=== PATIENT | female | born 1970 | race Caucasian/White ===

== ENCOUNTER 2021-02-24 17:14 | Inpatient (IN) | payer MEDICAID ==
[~2021-02-24] VITALS: Ht 170.2 cm; Wt 85.5 kg
[2021-02-24] MEDS ORDERED: ACETAMINOPHEN 650 MG SUPP ONE (17:22)
[2021-02-24] MEDS ORDERED: PROPOFOL 100 ML IV ONE ×2 (17:22→23:53)
[2021-02-24] MEDS ORDERED: DEXTROSE 50%, 50ML SYRINGE ONE (17:23)
[2021-02-24] MEDS ORDERED: ACETAMINOPHEN 650 MG SUPP PR ONE (17:30)
[2021-02-24] MEDS ORDERED: PLEASE ENTER HEIGHT AND WEIGHT MC SCH (17:30)
[2021-02-24] MEDS ORDERED: PROPOFOL 100 ML IV PRN (17:30)
[2021-02-24] MEDS ORDERED: DEXTROSE 50%, 50ML SYRINGE IVPush ONE (17:30)
[2021-02-24] MEDS ORDERED: SODIUM CHLORIDE 0.9% 1,000ML IVBOLUS ONE ×3 (17:30→18:30)
[2021-02-24 17:51] LABS: MEAN CORPUSCULAR HEMOGLOBIN 22.6 pg (27.0-34.8); MEAN PLATELET VOLUME 8.1 fL (7.4-10.4); PLATELET COUNT 355 x10^3/uL (130-400); RED BLOOD COUNT 5.12 x10^6/uL (3.82-5.3); RED CELL DISTRIBUTION WIDTH 19.6 % (9.6-15.2)
[2021-02-24] MEDS ORDERED: PIPERACILLIN/TAZO 3.375 GM in DEXTROSE 5% 50 ML IVPB ONE (18:00)
[2021-02-24] MEDS ORDERED: VANCOMYCIN PER PHARMACY MC PRN ×2 (18:00→20:00)
[2021-02-24 18:01] LABS: ALANINE AMINOTRANSFERASE 481 U/L (12-78); ALBUMIN 3.1 g/dL (3.4-5.0); ANION GAP 19 mmol/L (5-15); CALCIUM 6.7 mg/dL (8.5-10.1); CHLORIDE 117 mmol/L (98-107)
[2021-02-24 18:17] LABS: ALKALINE PHOSPHATASE 112 U/L (45-117); CREATININE 4.67 mg/dL (0.55-1.02); FREE T4 (FREE THYROXINE) 1.15 ng/dL (0.76-1.46)
[2021-02-24 18:18] LABS: INTERNATIONAL NORMALIZED RATIO 1.21 (0.93-1.1); PROTHROMBIN TIME 12.9 Seconds (9.6-11.5)
[2021-02-24] MEDS ORDERED: VANCOMYCIN 2,000 MG in SODIUM CHLORIDE 0.9% 500 ML IV ONE (18:30)
[2021-02-24 18:46] LABS: MD YES
[2021-02-24 18:51] LABS: BAND#(MANUAL) 1.57 x10^3/uL; BANDS%(MANUAL) 9 % (0-7); LYMPH#(MANUAL) 1.39 x10^3/uL (1-3.4); LYMPHS% (MANUAL) 8 % (22-44); MONOS#(MANUAL) 0.87 x10^3/uL (0.3-2.7); MONOS% (MANUAL) 5 % (2-9); SEG#(MANUAL) 13.57 x10^3/uL (1.8-6.8); SEGS% (MANUAL) 78 % (42-75)
[2021-02-24 18:52] LABS: ANISOCYTOSIS 2+; HYPOCHROMIA 1+; MICROCYTOSIS 1+
[2021-02-24 18:53] LABS: OVALOCYTES 1+; POLYCHROMASIA 1+
[2021-02-24 18:54] LABS: <PLATELET ESTIMATE> ADEQUATE; <PLT MORPHOLOGY> NORMAL PLT MORPH
[2021-02-24] MEDS ORDERED: SODIUM BICARB 8.4%, 50ML SYRINGE ONE ×2 (18:54→19:06)
--- NOTE | 2021-02-24 18:55 | NUR ---
LATE ENTRY: THIS IS A 50 YO F BIB [facility] FROM HOME W/ C/O AMS. PER EMS PT HAS BEEN ALTERED FOR A FEW DAYS". EMS STATES THE FAMILY REPORTS PT NOT SI BUT FORGET W/ MEDS. PER EMS PT MAY HAVE HAD A POLYPHARMACY OD W/ HX OF SAME. NO REPORTED FALLS/TRAUMA. PT INTUBATED METER SETTER. PT HAS BEEN INTUBATED X2 FOR SAME. RT HUMERAL HEAD IO METER SETTER. PT RECEIVED 110 TEODORA, 100MCG KETAMINE X2 AND 100ML D10 METER SETTER. PER EMS FSBS WAS 68, 102. UPON ARRIVAL, PT FEBRILE 103.5 RECTAL, TACHYCARDIC 110 AND HYPOGLYCEMIC FSBS 22, OTHER VS WDL. 1 AMP D50, PROPOFOL, NS BOLUS, ZOSYN INTIATED (AFTER BC DRAWX2) PER ORDERS. NG TUBE, WOO INITIATED PER . PT TO CT AND RETURNED W/O INCIDENT. URINE COLLECTED AND WALKED TO LAB.
--- NOTE | 2021-02-24 18:56 | NUR ---
PER EMS PT WAS "ALTERED FOR A FEW DAYS" AND MOSTLY ASLEEP TODAY ACCORDING TO SPOUSE.
[2021-02-24] MEDS ORDERED: SODIUM BICARBONATE 8.4% 100 MEQ in DEXTROSE 5% 1,000 ML IV SCH (19:00)
[2021-02-24] MEDS ORDERED: SODIUM BICARBONATE 1 MEQ/ML, 50ML VIAL IVPush ONE (19:00)
--- NOTE | 2021-02-24 19:04 | NUR ---
PTS SPOUSE DEEPTHI MOCK [phone]. PER [facility] WILL BE COMING TO HOSPITAL IN A FEW HOURS.
[2021-02-24 19:12] LABS: MICROSCOPIC INDICATED
[2021-02-24 19:25] LABS: AMPHETAMINE SCREEN, URINE Positive (Negative); BARBITURATE SCREEN, URINE Negative (Negative); BENZODIAZEPINE SCREEN, URINE Negative (Negative); CANNABINOID SCREEN, URINE Negative (Negative); COCAINE SCREEN, URINE Negative (Negative); METHADONE SCREEN, URINE Negative (Negative); OPIATE SCREEN, URINE Positive (Negative)
--- NOTE | 2021-02-24 19:27 | NUR ---
PINK SEPSIS BOLUS STICKERS APPLIED TO 1ST AND 2ND L NS BOLUS BAGS THAT ARE STILL INFUSING. ARIS RN AWARE OF NEED FOR ADDITIONAL 589ML TO COMPLETE 2589ML BOLUS PER SEPSIS PROTOCOL. PT NOT HYPOTENSIVE AT THIS TIME.
--- NOTE | 2021-02-24 19:28 | NUR ---
REPORT FROM RICARDO LOPEZ ASSUMED CARE OF PT AT THIS TIME
--- NOTE | 2021-02-24 19:28 | NUR ---
LP BY DR JONES WALKED FLUID TO LAB
--- NOTE | 2021-02-24 19:31 | NUR ---
REPORT TO ARIS LOPEZ. PT CONDITION UNCHANGED FROM PREVIOUS ASSESSMENT. AT BEDSIDE FOR LP.
--- NOTE | 2021-02-24 19:56 | NUR ---
PT [place]EE SETTINGS ETT 7.0 23 AT LIP PEEP 5 TV 500 100%FIO2 RATE 22
[2021-02-24] MEDS ORDERED: LACTULOSE 3.3 GM/5 ML ORAL.SOL RC ONE (20:00)
[2021-02-24] MEDS ORDERED: PHARMACY MAY ADJ FOR RENAL FX MC PRN (20:00)
[2021-02-24] MEDS ORDERED: OMEP5POW PO (20:01)
[2021-02-24] MEDS ORDERED: BACL20TA PO (20:09)
[2021-02-24] MEDS ORDERED: DULO40CA2 PO (20:10)
[2021-02-24] MEDS ORDERED: FLUT9.9S16 PO (20:10)
[2021-02-24] MEDS ORDERED: PROM118S6 PO (20:11)
[2021-02-24] MEDS ORDERED: [UNRECOGNIZED DRUG - CODE] PO (20:12)
[2021-02-24] MEDS ORDERED: ESTR0.3T PO (20:12)
[2021-02-24] MEDS ORDERED: OXCA300O5 PO (20:13)
[2021-02-24 20:14] LABS: GLUCOSE, CSF 111 mg/dL (40-80); TOTAL PROTEIN,CSF 47 mg/dL (15-45)
[2021-02-24] MEDS ORDERED: RISP0.253 PO (20:14)
[2021-02-24] MEDS ORDERED: DIPH25TA24 PO (20:15)
[2021-02-24] MEDS ORDERED: GABA250S3 PO (20:15)
[2021-02-24] MEDS ORDERED: HYDR-3241 PO (20:16)
--- NOTE | 2021-02-24 20:23 | NUR ---
PREETI CELL [phone]
--- NOTE | 2021-02-24 20:24 | NUR ---
REPORT TO ADELFO AT THIS TIME
--- NOTE | 2021-02-24 20:50 | NUR ---
PT TO ICU ON MONITORS WITH 2 RN AND RT
[2021-02-24] MEDS ORDERED: THIAMINE 200 MG in SODIUM CHLORIDE 0.9% 50 ML IV ONE (21:03)
[2021-02-24 21:16] LABS: TRIGLYCERIDES 161 mg/dL (50-200)
[2021-02-24] MEDS ORDERED: PHARMACOKINETIC MONITORING MC PRN (21:30)
[2021-02-24] MEDS: PIPERACILLIN/TAZO 2.25 GM in DEXTROSE 5% 50 ML IV SCH (21:40)
[2021-02-24] MEDS: LACTULOSE 20 GM/30 ML UDC PO/NG SCH (21:40)
[2021-02-24] MEDS ORDERED: SODIUM BICARBONATE 8.4% 150 MEQ in DEXTROSE 5% 1,000 ML IV SCH (22:00)
[2021-02-24 22:16] LABS: CREATINE KINASE, TOTAL 34111 U/L (26-192)
[2021-02-24 22:49] LABS: ANION GAP 17 mmol/L (5-15); CHLORIDE 121 mmol/L (98-107); CREATININE 4.32 mg/dL (0.55-1.02); SALICYLATE LEVEL 4.8 mg/dL (2.8-20.0)
[2021-02-24 23:04] LABS: CALCIUM 5.8 mg/dL (8.5-10.1)
[2021-02-24] MEDS ORDERED: CALCIUM GLUCONATE 9.2 MEQ in SODIUM CHLORIDE 0.9% 100 ML IV ONE (23:30)
[2021-02-24] MEDS ORDERED: POTASSIUM CHLORIDE 20 MEQ PACKET PO/NG ONE (23:30)
[2021-02-24] MEDS: HEPARIN 5,000 UNITS/ML, 1ML SQ SCH (23:37)
[2021-02-25] MEDS: PROPOFOL 100 ML IV PRN ×6 (00:10→21:53)
[2021-02-25 03:05] LABS: CHLORIDE,URINE RANDOM 67 mmol/L; POTASSIUM,URINE RANDOM 56 mmol/L; SODIUM,URINE RANDOM 60 mmol/L
[2021-02-25] MEDS: SODIUM BICARBONATE 8.4% 150 MEQ in DEXTROSE 5% 1,000 ML IV SCH ×2 (03:10→17:19)
[2021-02-25] MEDS: DEXTROSE 5% 1,000 ML IV SCH ×3 (03:16→21:00)
[2021-02-25] MEDS: PIPERACILLIN/TAZO 2.25 GM in DEXTROSE 5% 50 ML IV SCH ×3 (04:09→16:27)
[2021-02-25] MEDS: HEPARIN 5,000 UNITS/ML, 1ML SQ SCH ×3 (06:03→22:39)
[2021-02-25 06:14] LABS: BASOPHILS % (AUTO) 0 % (0-1); EOSINOPHILS % (AUTO) 0 % (1-7); LYMPHOCYTES % (AUTO) 7 % (22-44); MD NO; MEAN CORPUSCULAR HEMOGLOBIN 22.7 pg (27.0-34.8); MEAN CORPUSCULAR HGB CONC 31.3 g/dL (32.4-35.8); MEAN PLATELET VOLUME 8.7 fL (7.4-10.4); MONOCYTES % (AUTO) 4 % (2-9); NEUTROPHILS % (AUTO) 88 % (42-75); PLATELET COUNT 208 x10^3/uL (130-400); RED BLOOD COUNT 4.78 x10^6/uL (3.82-5.3)
[2021-02-25 06:23] LABS: ALANINE AMINOTRANSFERASE 489 U/L (12-78); ALBUMIN 2.5 g/dL (3.4-5.0); ANION GAP 13 mmol/L (5-15); CALCIUM 6.5 mg/dL (8.5-10.1); CHLORIDE 113 mmol/L (98-107); CREATININE 4.67 mg/dL (0.55-1.02)
[2021-02-25 06:40] LABS: ALKALINE PHOSPHATASE 93 U/L (45-117); BILIRUBIN,TOTAL 0.7 mg/dL (0.2-1.0); TOTAL PROTEIN 5.7 g/dL (6.4-8.2)
[2021-02-25] MEDS ORDERED: POTASSIUM CHLORIDE 40 MEQ in SODIUM CHLORIDE 0.9% 100 ML IV ONE (07:00)
[2021-02-25 07:08] LABS: CREATINE KINASE, TOTAL 34401 U/L (26-192)
[2021-02-25] MEDS: PANTOPRAZOLE 40 MG IV IVPush SCH (09:35)
[2021-02-25] MEDS: LACTULOSE 20 GM/30 ML UDC PO/NG SCH ×3 (09:35→21:00)
[2021-02-25] MEDS ORDERED: FENTANYL PF 100 MCG/2ML IVPush PRN (22:00)
[2021-02-25] MEDS ORDERED: ACYCLOVIR 900 MG in SODIUM CHLORIDE 0.9% 250 ML IV SCH (22:30)
[2021-02-26] MEDS: PIPERACILLIN/TAZO 2.25 GM in DEXTROSE 5% 50 ML IV SCH ×4 (00:29→18:07)
[2021-02-26] MEDS: PROPOFOL 100 ML IV PRN ×2 (02:39→05:55)
[2021-02-26] MEDS: DEXTROSE 5% 1,000 ML IV SCH ×2 (03:08→10:42)
[2021-02-26] MEDS: SODIUM BICARBONATE 8.4% 150 MEQ in DEXTROSE 5% 1,000 ML IV SCH ×2 (03:08→21:33)
[2021-02-26 04:20] LABS: MEAN CORPUSCULAR HEMOGLOBIN 22.7 pg (27.0-34.8); MEAN CORPUSCULAR HGB CONC 31.7 g/dL (32.4-35.8); MEAN PLATELET VOLUME 7.8 fL (7.4-10.4); PLATELET COUNT 158 x10^3/uL (130-400); RED BLOOD COUNT 4.04 x10^6/uL (3.82-5.3); RED CELL DISTRIBUTION WIDTH 19.2 % (9.6-15.2)
[2021-02-26 04:45] LABS: MD YES
[2021-02-26 04:49] LABS: ANION GAP 12 mmol/L (5-15); CHLORIDE 103 mmol/L (98-107); CREATININE 5.21 mg/dL (0.55-1.02); VANCOMYCIN,RANDOM 28.4 mcg/mL
[2021-02-26 04:50] LABS: BAND#(MANUAL) 3.42 x10^3/uL; BANDS%(MANUAL) 29 % (0-7); EOS#(MANUAL) 0.12 x10^3/uL (0.0-0.4); EOS% (MANUAL) 1 % (1-7); LYMPHS% (MANUAL) 11 % (22-44); MONOS#(MANUAL) 0.35 x10^3/uL (0.3-2.7); MONOS% (MANUAL) 3 % (2-9); SEG#(MANUAL) 6.61 x10^3/uL (1.8-6.8); SEGS% (MANUAL) 56 % (42-75)
[2021-02-26 04:51] LABS: ANISOCYTOSIS 1+; HYPOCHROMIA 1+; MICROCYTOSIS 1+; OVALOCYTES 1+; POLYCHROMASIA 1+
[2021-02-26 04:52] LABS: <PLATELET ESTIMATE> ADEQUATE; TARGET CELLS 1+
[2021-02-26 04:53] LABS: <PLT MORPHOLOGY> NORMAL PLT MORPH
[2021-02-26 05:00] LABS: CREATINE KINASE, TOTAL 17010 U/L (26-192)
[2021-02-26 05:03] LABS: CALCIUM 5.9 mg/dL (8.5-10.1)
[2021-02-26] MEDS ORDERED: MAGNESIUM SULFATE PMX 2GM/50ML 50 ML IV ONE (05:30)
[2021-02-26] MEDS ORDERED: CALCIUM GLUCONATE 9.2 MEQ in SODIUM CHLORIDE 0.9% 100 ML IV ONE (05:30)
[2021-02-26] MEDS: HEPARIN 5,000 UNITS/ML, 1ML SQ SCH ×3 (05:53→23:00)
[2021-02-26] MEDS: LACTULOSE 20 GM/30 ML UDC PO/NG SCH ×3 (08:19→21:09)
[2021-02-26] MEDS: PANTOPRAZOLE 40 MG IV IVPush SCH (08:19)
[2021-02-26] MEDS ORDERED: FUROSEMIDE 40 MG/4 ML IV ONE (11:30)
[2021-02-26] MEDS: POTASSIUM CHLORIDE 20 MEQ PACKET NG SCH ×2 (12:56→18:08)
[2021-02-26] MEDS: ONDANSETRON 2MG/ML, 2ML IVPush PRN (14:15)
[2021-02-27] MEDS: PIPERACILLIN/TAZO 2.25 GM in DEXTROSE 5% 50 ML IV SCH ×4 (00:02→17:40)
[2021-02-27] MEDS: POTASSIUM CHLORIDE 20 MEQ PACKET NG SCH (00:52)
[2021-02-27] MEDS ORDERED: DEXTROSE 5% 1,000 ML IV SCH (03:00)
[2021-02-27 04:25] LABS: MEAN CORPUSCULAR HEMOGLOBIN 22.9 pg (27.0-34.8); MEAN CORPUSCULAR HGB CONC 32.2 g/dL (32.4-35.8); MEAN PLATELET VOLUME 8.4 fL (7.4-10.4); PLATELET COUNT 138 x10^3/uL (130-400); RED CELL DISTRIBUTION WIDTH 19.3 % (9.6-15.2)
[2021-02-27 04:36] LABS: ANION GAP 10 mmol/L (5-15); CALCIUM 6.8 mg/dL (8.5-10.1); CHLORIDE 101 mmol/L (98-107)
[2021-02-27 04:37] LABS: VANCOMYCIN,RANDOM 25.3 mcg/mL
[2021-02-27 06:14] LABS: MD YES
[2021-02-27 06:15] LABS: ANISOCYTOSIS 2+; HYPOCHROMIA 1+; LYMPH#(MANUAL) 0.93 x10^3/uL (1-3.4); LYMPHS% (MANUAL) 6 % (22-44); MICROCYTOSIS 1+; MONOS#(MANUAL) 0.31 x10^3/uL (0.3-2.7); MONOS% (MANUAL) 2 % (2-9); SEG#(MANUAL) 14.26 x10^3/uL (1.8-6.8); SEGS% (MANUAL) 92 % (42-75)
[2021-02-27 06:18] LABS: <PLATELET ESTIMATE> ADEQUATE; <PLT MORPHOLOGY> NORMAL PLT MORPH; OVALOCYTES 1+
[2021-02-27] MEDS: HEPARIN 5,000 UNITS/ML, 1ML SQ SCH ×3 (06:51→21:33)
[2021-02-27] MEDS: PANTOPRAZOLE 40 MG IV IVPush SCH (07:58)
[2021-02-27] MEDS: LACTULOSE 20 GM/30 ML UDC PO/NG SCH ×3 (07:59→21:33)
[2021-02-27] MEDS: SODIUM BICARBONATE 8.4% 150 MEQ in DEXTROSE 5% 1,000 ML IV SCH (23:09)
[2021-02-28] MEDS: PIPERACILLIN/TAZO 2.25 GM in DEXTROSE 5% 50 ML IV SCH ×4 (00:29→17:48)
[2021-02-28] MEDS: HEPARIN 5,000 UNITS/ML, 1ML SQ SCH ×3 (05:42→22:47)
[2021-02-28 05:50] LABS: MEAN CORPUSCULAR HEMOGLOBIN 22.6 pg (27.0-34.8); MEAN CORPUSCULAR HGB CONC 31.7 g/dL (32.4-35.8); MEAN PLATELET VOLUME 8.5 fL (7.4-10.4); PLATELET COUNT 117 x10^3/uL (130-400); RED BLOOD COUNT 4.51 x10^6/uL (3.82-5.3); RED CELL DISTRIBUTION WIDTH 19.5 % (9.6-15.2)
[2021-02-28 05:59] LABS: ALBUMIN 1.9 g/dL (3.4-5.0); ANION GAP 5 mmol/L (5-15); CALCIUM 8.1 mg/dL (8.5-10.1); CHLORIDE 103 mmol/L (98-107)
[2021-02-28 06:29] LABS: ALANINE AMINOTRANSFERASE 471 U/L (12-78); ALKALINE PHOSPHATASE 215 U/L (45-117); BILIRUBIN,TOTAL 0.9 mg/dL (0.2-1.0); CREATINE KINASE, TOTAL 11438 U/L (26-192); TOTAL PROTEIN 5.3 g/dL (6.4-8.2); VANCOMYCIN,RANDOM 18.2 mcg/mL
[2021-02-28 07:12] LABS: MD YES
[2021-02-28 07:51] LABS: EOS% (MANUAL) 2 % (1-7); LYMPH#(MANUAL) 1.48 x10^3/uL (1-3.4); LYMPHS% (MANUAL) 10 % (22-44); SEG#(MANUAL) 13.02 x10^3/uL (1.8-6.8); SEGS% (MANUAL) 88 % (42-75)
[2021-02-28 07:52] LABS: <PLATELET ESTIMATE> DECREASED; <PLT MORPHOLOGY> NORMAL PLT MORPH; ANISOCYTOSIS 2+; HYPOCHROMIA 1+; MICROCYTOSIS 2+; OVALOCYTES 1+
[2021-02-28] MEDS: LACTULOSE 20 GM/30 ML UDC PO/NG SCH ×2 (09:35→20:52)
[2021-02-28] MEDS: PANTOPRAZOLE 40 MG IV IVPush SCH (09:35)
[2021-02-28] MEDS: SODIUM BICARBONATE 8.4% 150 MEQ in DEXTROSE 5% 1,000 ML IV SCH (20:50)
[2021-03-01] MEDS: PIPERACILLIN/TAZO 2.25 GM in DEXTROSE 5% 50 ML IV SCH ×2 (01:10→06:21)
[2021-03-01 04:33] LABS: MEAN CORPUSCULAR HGB CONC 31.8 g/dL (32.4-35.8); MEAN PLATELET VOLUME 8.5 fL (7.4-10.4); PLATELET COUNT 108 x10^3/uL (130-400)
[2021-03-01 04:40] LABS: ANION GAP 6 mmol/L (5-15); CALCIUM 7.6 mg/dL (8.5-10.1); CHLORIDE 102 mmol/L (98-107); CREATININE 4.25 mg/dL (0.55-1.02)
[2021-03-01 05:37] LABS: MD YES
[2021-03-01 05:39] LABS: EOS#(MANUAL) 0.39 x10^3/uL (0.0-0.4); EOS% (MANUAL) 4 % (1-7); LYMPH#(MANUAL) 1.08 x10^3/uL (1-3.4); LYMPHS% (MANUAL) 11 % (22-44); MONOS#(MANUAL) 0.78 x10^3/uL (0.3-2.7); MONOS% (MANUAL) 8 % (2-9); MYELOCYTES% (MANUAL) 1 % (0-0); SEG#(MANUAL) 7.45 x10^3/uL (1.8-6.8); SEGS% (MANUAL) 76 % (42-75)
[2021-03-01 05:40] LABS: ANISOCYTOSIS 1+; MICROCYTOSIS 1+; OVALOCYTES 1+; POLYCHROMASIA 1+
[2021-03-01 05:41] LABS: <PLATELET ESTIMATE> DECREASED; <PLT MORPHOLOGY> NORMAL PLT MORPH; HYPOCHROMIA 1+
[2021-03-01] MEDS: HEPARIN 5,000 UNITS/ML, 1ML SQ SCH ×3 (06:41→21:26)
[2021-03-01] MEDS: LACTULOSE 20 GM/30 ML UDC PO/NG SCH (08:54)
[2021-03-01] MEDS: HYDROcodone/APAP 5/325 TABLET PO PRN ×2 (08:54→18:42)
[2021-03-01] MEDS: ONDANSETRON 2MG/ML, 2ML IVPush PRN (08:54)
[2021-03-01] MEDS: PANTOPRAZOLE 40 MG IV IVPush SCH (08:54)
[2021-03-01] MEDS: CEFTRIAXONE 2 GM in DEXTROSE 5% 50 ML IVPB SCH (09:57)
[2021-03-01 19:05] VITALS: BP 143/95
[2021-03-02 01:14] VITALS: BP 147/88
[2021-03-02 05:19] LABS: MEAN CORPUSCULAR HEMOGLOBIN 22.9 pg (27.0-34.8); MEAN CORPUSCULAR HGB CONC 30.9 g/dL (32.4-35.8); MEAN PLATELET VOLUME 8.7 fL (7.4-10.4); PLATELET COUNT 136 x10^3/uL (130-400); RED BLOOD COUNT 4.68 x10^6/uL (3.82-5.3); RED CELL DISTRIBUTION WIDTH 20.6 % (9.6-15.2)
[2021-03-02 05:29] LABS: CHLORIDE 107 mmol/L (98-107)
[2021-03-02 05:40] LABS: ALANINE AMINOTRANSFERASE 400 U/L (12-78); ALBUMIN 2.1 g/dL (3.4-5.0); ALKALINE PHOSPHATASE 185 U/L (45-117); ANION GAP 6 mmol/L (5-15); BILIRUBIN,TOTAL 0.5 mg/dL (0.2-1.0); CREATININE 4.21 mg/dL (0.55-1.02); TOTAL PROTEIN 6.2 g/dL (6.4-8.2)
[2021-03-02 06:03] LABS: MD YES
[2021-03-02 06:07] LABS: BAND#(MANUAL) 0.45 x10^3/uL; BANDS%(MANUAL) 4 % (0-7); EOS#(MANUAL) 0.11 x10^3/uL (0.0-0.4); EOS% (MANUAL) 1 % (1-7); LYMPH#(MANUAL) 1.01 x10^3/uL (1-3.4); LYMPHS% (MANUAL) 9 % (22-44); METAMYELOCYTES# (MANUAL) 0.11 x10^3/uL (0-0); METAMYELOCYTES% (MANUAL) 1 % (0-1); MONOS#(MANUAL) 1.46 x10^3/uL (0.3-2.7); MONOS% (MANUAL) 13 % (2-9); MYELOCYTES# (MANUAL) 0.22 x10^3/uL (0-0); MYELOCYTES% (MANUAL) 2 % (0-0); REACTIVE LYMPHS # (MANUAL) 0.11 x10^3/uL (0-0); REACTIVE LYMPHS % (MANUAL) 1 % (0-0); SEG#(MANUAL) 7.73 x10^3/uL (1.8-6.8); SEGS% (MANUAL) 69 % (42-75)
[2021-03-02 06:12] LABS: ANISOCYTOSIS 1+; HYPOCHROMIA 1+; MICROCYTOSIS 1+; OVALOCYTES 1+
[2021-03-02 06:13] LABS: <PLATELET ESTIMATE> ADEQUATE; <PLT MORPHOLOGY> NORMAL PLT MORPH; POLYCHROMASIA 1+; TOXIC GRAN 1+
[2021-03-02] MEDS: HEPARIN 5,000 UNITS/ML, 1ML SQ SCH ×2 (06:28→15:38)
[2021-03-02 07:00] VITALS: BP 146/83
[2021-03-02] MEDS: PANTOPRAZOLE 40 MG IV IVPush SCH (08:34)
[2021-03-02] MEDS: LACTULOSE 20 GM/30 ML UDC PO/NG SCH (08:34)
[2021-03-02] MEDS: CEFTRIAXONE 2 GM in DEXTROSE 5% 50 ML IVPB SCH (09:55)
[2021-03-02] MEDS: HYDROcodone/APAP 5/325 TABLET PO PRN ×2 (10:02→17:27)
[2021-03-02 13:35] VITALS: BP 155/92
[2021-03-02 19:07] VITALS: BP 143/87
[2021-03-03] MEDS: HEPARIN 5,000 UNITS/ML, 1ML SQ SCH ×3 (00:59→17:10)
[2021-03-03] MEDS: ONDANSETRON 2MG/ML, 2ML IVPush PRN (00:59)
[2021-03-03] MEDS: HYDROcodone/APAP 5/325 TABLET PO PRN ×2 (01:00→13:57)
[2021-03-03 01:11] VITALS: BP 149/96
[2021-03-03 04:53] LABS: MEAN CORPUSCULAR HEMOGLOBIN 22.8 pg (27.0-34.8); MEAN CORPUSCULAR HGB CONC 30.9 g/dL (32.4-35.8); MEAN PLATELET VOLUME 9.3 fL (7.4-10.4); PLATELET COUNT 155 x10^3/uL (130-400); RED BLOOD COUNT 4.76 x10^6/uL (3.82-5.3); RED CELL DISTRIBUTION WIDTH 20.9 % (9.6-15.2)
[2021-03-03 05:04] LABS: ALANINE AMINOTRANSFERASE 261 U/L (12-78); ALBUMIN 2.1 g/dL (3.4-5.0); ANION GAP 12 mmol/L (5-15); CALCIUM 8.3 mg/dL (8.5-10.1); CHLORIDE 96 mmol/L (98-107); CREATININE 5.91 mg/dL (0.55-1.02)
[2021-03-03 05:06] LABS: ALKALINE PHOSPHATASE 158 U/L (45-117); BILIRUBIN,TOTAL 0.3 mg/dL (0.2-1.0); TOTAL PROTEIN 6.1 g/dL (6.4-8.2)
[2021-03-03 05:41] LABS: MD YES
[2021-03-03 05:45] LABS: BAND#(MANUAL) 0.44 x10^3/uL; BANDS%(MANUAL) 3 % (0-7); EOS#(MANUAL) 0.29 x10^3/uL (0.0-0.4); EOS% (MANUAL) 2 % (1-7); LYMPH#(MANUAL) 2.21 x10^3/uL (1-3.4); LYMPHS% (MANUAL) 15 % (22-44); METAMYELOCYTES# (MANUAL) 0.59 x10^3/uL (0-0); METAMYELOCYTES% (MANUAL) 4 % (0-1); MONOS#(MANUAL) 1.62 x10^3/uL (0.3-2.7); MONOS% (MANUAL) 11 % (2-9); SEG#(MANUAL) 9.56 x10^3/uL (1.8-6.8); SEGS% (MANUAL) 65 % (42-75)
[2021-03-03 05:46] LABS: ANISOCYTOSIS 1+; HYPOCHROMIA 1+; MICROCYTOSIS 1+; OVALOCYTES 1+; POLYCHROMASIA 1+
[2021-03-03 05:47] LABS: <PLATELET ESTIMATE> ADEQUATE; <PLT MORPHOLOGY> NORMAL PLT MORPH; TOXIC GRAN 1+
[2021-03-03 06:50] VITALS: BP 149/87
[2021-03-03] MEDS: ACETAMINOPHEN 325 MG TABLET PO PRN ×2 (08:28→19:35)
[2021-03-03] MEDS: CEFTRIAXONE 2 GM in DEXTROSE 5% 50 ML IVPB SCH (08:29)
[2021-03-03] MEDS: PANTOPRAZOLE 40 MG IV IVPush SCH (08:29)
[2021-03-03] MEDS: LACTULOSE 20 GM/30 ML UDC PO/NG SCH (08:29)
[2021-03-03 13:27] VITALS: BP 135/88
[2021-03-03 18:36] VITALS: BP 144/94
[2021-03-03] MEDS: MELATONIN 5 MG TABLET PO PRN (21:00)
[2021-03-04 00:39] VITALS: BP 143/87
[2021-03-04] MEDS: HYDROcodone/APAP 5/325 TABLET PO PRN ×2 (00:41→17:01)
[2021-03-04] MEDS: HEPARIN 5,000 UNITS/ML, 1ML SQ SCH ×3 (00:41→17:11)
[2021-03-04] MEDS: ACETAMINOPHEN 325 MG TABLET PO PRN ×2 (06:07→20:53)
[2021-03-04] MEDS: PANTOPRAZOLE 40MG TABLET PO SCH (07:37)
[2021-03-04] MEDS: LACTULOSE 20 GM/30 ML UDC PO/NG SCH (07:37)
[2021-03-04] MEDS: CEFTRIAXONE 2 GM in DEXTROSE 5% 50 ML IVPB SCH (08:10)
[2021-03-04 08:23] VITALS: BP 152/88
[2021-03-04] MEDS: ONDANSETRON 2MG/ML, 2ML IVPush PRN (08:35)
[2021-03-04 08:53] LABS: ALBUMIN 2.2 g/dL (3.4-5.0); ANION GAP 13 mmol/L (5-15); CALCIUM 8.4 mg/dL (8.5-10.1); CHLORIDE 93 mmol/L (98-107); CREATININE 5.26 mg/dL (0.55-1.02)
[2021-03-04 08:55] LABS: MEAN CORPUSCULAR HEMOGLOBIN 22.7 pg (27.0-34.8); MEAN CORPUSCULAR HGB CONC 31.1 g/dL (32.4-35.8); MEAN PLATELET VOLUME 9.4 fL (7.4-10.4); PLATELET COUNT 219 x10^3/uL (130-400); RED BLOOD COUNT 4.51 x10^6/uL (3.82-5.3); RED CELL DISTRIBUTION WIDTH 20.7 % (9.6-15.2)
[2021-03-04 09:29] LABS: MD YES
[2021-03-04 09:33] LABS: ANISOCYTOSIS 1+; BAND#(MANUAL) 0.38 x10^3/uL; BANDS%(MANUAL) 2 % (0-7); EOS#(MANUAL) 0.38 x10^3/uL (0.0-0.4); EOS% (MANUAL) 2 % (1-7); LYMPH#(MANUAL) 3.23 x10^3/uL (1-3.4); LYMPHS% (MANUAL) 17 % (22-44); METAMYELOCYTES# (MANUAL) 0.19 x10^3/uL (0-0); METAMYELOCYTES% (MANUAL) 1 % (0-1); MICROCYTOSIS 1+; MONOS#(MANUAL) 1.33 x10^3/uL (0.3-2.7); MONOS% (MANUAL) 7 % (2-9); MYELOCYTES# (MANUAL) 0.19 x10^3/uL (0-0); MYELOCYTES% (MANUAL) 1 % (0-0); SEGS% (MANUAL) 70 % (42-75)
[2021-03-04 09:34] LABS: HYPOCHROMIA 1+; OVALOCYTES 1+; POLYCHROMASIA 1+
[2021-03-04 09:35] LABS: <PLATELET ESTIMATE> ADEQUATE; <PLT MORPHOLOGY> NORMAL PLT MORPH; TOXIC GRAN 1+
[2021-03-04 12:44] VITALS: BP 138/94
[2021-03-04 19:13] VITALS: BP 138/92
[2021-03-04] MEDS: MELATONIN 5 MG TABLET PO PRN (20:53)
[2021-03-05 01:12] VITALS: BP 137/90
[2021-03-05] MEDS: HYDROcodone/APAP 5/325 TABLET PO PRN ×3 (01:44→21:39)
[2021-03-05] MEDS: HEPARIN 5,000 UNITS/ML, 1ML SQ SCH ×3 (01:44→16:56)
[2021-03-05] MEDS: PANTOPRAZOLE 40MG TABLET PO SCH (05:24)
[2021-03-05 05:54] LABS: MEAN CORPUSCULAR HEMOGLOBIN 23.1 pg (27.0-34.8); PLATELET COUNT 258 x10^3/uL (130-400); RED BLOOD COUNT 4.59 x10^6/uL (3.82-5.3); RED CELL DISTRIBUTION WIDTH 21.2 % (9.6-15.2)
[2021-03-05 06:08] LABS: ALBUMIN 2.4 g/dL (3.4-5.0); ANION GAP 18 mmol/L (5-15); CALCIUM 8.2 mg/dL (8.5-10.1); CHLORIDE 90 mmol/L (98-107)
[2021-03-05 06:15] LABS: ALANINE AMINOTRANSFERASE 147 U/L (12-78); ALKALINE PHOSPHATASE 145 U/L (45-117); BILIRUBIN,TOTAL 0.4 mg/dL (0.2-1.0); CREATININE 6.78 mg/dL (0.55-1.02); TOTAL PROTEIN 6.9 g/dL (6.4-8.2)
[2021-03-05 06:19] LABS: MD YES
[2021-03-05 06:21] LABS: ANISOCYTOSIS 1+; BAND#(MANUAL) 0.42 x10^3/uL; BANDS%(MANUAL) 2 % (0-7); HYPOCHROMIA 1+; LYMPH#(MANUAL) 3.36 x10^3/uL (1-3.4); LYMPHS% (MANUAL) 16 % (22-44); METAMYELOCYTES# (MANUAL) 0.21 x10^3/uL (0-0); METAMYELOCYTES% (MANUAL) 1 % (0-1); MICROCYTOSIS 1+; MONOS#(MANUAL) 1.26 x10^3/uL (0.3-2.7); MONOS% (MANUAL) 6 % (2-9); MYELOCYTES# (MANUAL) 0.21 x10^3/uL (0-0); MYELOCYTES% (MANUAL) 1 % (0-0); OVALOCYTES 1+; POLYCHROMASIA 1+; SEG#(MANUAL) 15.54 x10^3/uL (1.8-6.8); SEGS% (MANUAL) 74 % (42-75)
[2021-03-05 06:22] LABS: <PLATELET ESTIMATE> ADEQUATE; <PLT MORPHOLOGY> NORMAL PLT MORPH
[2021-03-05 08:00] VITALS: BP 136/70
[2021-03-05] MEDS: LACTULOSE 20 GM/30 ML UDC PO/NG SCH (08:15)
[2021-03-05 09:48] LABS: CREATINE KINASE, TOTAL 2718 U/L (26-192)
[2021-03-05 10:22] VITALS: BP 145/90
[2021-03-05 11:17] LABS: CLOSTRIDIUM DIFFICILE ANTIGEN NEGATIVE; CLOSTRIDIUM DIFFICILE TOXIN NEGATIVE (Negative)
--- NOTE | 2021-03-05 14:17 | NUR ---
Tube feeding: Nepro: goal: 65 ml/hr from 16:00 to 08:00 Addendum: 03/05/21 at [address] Amended: Links added.
[2021-03-05 14:30] VITALS: BP 150/92
[2021-03-05] MEDS: ALPRazolam 1MG TAB PO PRN (16:54)
[2021-03-05] MEDS ORDERED: CEFAZOLIN 3,000 MG in SODIUM CHLORIDE 0.9% 50 ML IV SCH (17:00)
[2021-03-05 21:34] VITALS: BP 140/93
[2021-03-05] MEDS: MELATONIN 5 MG TABLET PO PRN (21:38)
[2021-03-06] MEDS: HEPARIN 5,000 UNITS/ML, 1ML SQ SCH ×3 (01:30→17:22)
[2021-03-06 05:24] VITALS: BP 123/83
[2021-03-06] MEDS: PANTOPRAZOLE 40MG TABLET PO SCH (05:27)
[2021-03-06] MEDS: HYDROcodone/APAP 5/325 TABLET PO PRN ×3 (05:33→21:12)
[2021-03-06 06:00] LABS: HCT (SEDRATE) 32.3 % (34.6-47.8)
[2021-03-06 06:10] LABS: ALANINE AMINOTRANSFERASE 101 U/L (12-78); ALBUMIN 2.4 g/dL (3.4-5.0); ANION GAP 14 mmol/L (5-15); CALCIUM 8.4 mg/dL (8.5-10.1); CHLORIDE 95 mmol/L (98-107)
[2021-03-06 06:11] LABS: BASOPHILS % (AUTO) 0 % (0-1); EOSINOPHILS % (AUTO) 1 % (1-7); LYMPHOCYTES % (AUTO) 7 % (22-44); MEAN CORPUSCULAR HEMOGLOBIN 23.3 pg (27.0-34.8); MEAN CORPUSCULAR HGB CONC 32.2 g/dL (32.4-35.8); MEAN PLATELET VOLUME 8.8 fL (7.4-10.4); MONOCYTES % (AUTO) 6 % (2-9); NEUTROPHILS % (AUTO) 86 % (42-75); PLATELET COUNT 335 x10^3/uL (130-400); RED BLOOD COUNT 4.52 x10^6/uL (3.82-5.3); RED CELL DISTRIBUTION WIDTH 21.3 % (9.6-15.2)
[2021-03-06 06:20] LABS: ALKALINE PHOSPHATASE 139 U/L (45-117); BILIRUBIN,TOTAL 0.4 mg/dL (0.2-1.0); TOTAL PROTEIN 6.7 g/dL (6.4-8.2)
[2021-03-06 07:03] LABS: MD NO
[2021-03-06] MEDS: LACTULOSE 20 GM/30 ML UDC PO/NG SCH (08:07)
[2021-03-06 08:12] VITALS: BP 110/63
[2021-03-06 12:27] LABS: MICROSCOPIC INDICATED
[2021-03-06 14:47] VITALS: BP 131/83
[2021-03-06 19:40] VITALS: BP 124/75
[2021-03-06] MEDS: ONDANSETRON 2MG/ML, 2ML IVPush PRN (19:49)
[2021-03-07] MEDS: ONDANSETRON 2MG/ML, 2ML IVPush PRN ×2 (00:01→20:55)
[2021-03-07] MEDS: HEPARIN 5,000 UNITS/ML, 1ML SQ SCH ×3 (01:01→16:39)
[2021-03-07] MEDS: MELATONIN 5 MG TABLET PO PRN ×2 (01:01→22:45)
[2021-03-07] MEDS: HYDROcodone/APAP 5/325 TABLET PO PRN ×3 (01:02→20:38)
[2021-03-07 01:49] VITALS: BP 134/83
[2021-03-07 04:45] LABS: BASOPHILS % (AUTO) 0 % (0-1); EOSINOPHILS % (AUTO) 1 % (1-7); LYMPHOCYTES % (AUTO) 10 % (22-44); MEAN CORPUSCULAR HEMOGLOBIN 23.5 pg (27.0-34.8); MEAN CORPUSCULAR HGB CONC 32.2 g/dL (32.4-35.8); MEAN PLATELET VOLUME 8.2 fL (7.4-10.4); MONOCYTES % (AUTO) 7 % (2-9); NEUTROPHILS % (AUTO) 81 % (42-75); PLATELET COUNT 362 x10^3/uL (130-400); RED BLOOD COUNT 4.24 x10^6/uL (3.82-5.3); RED CELL DISTRIBUTION WIDTH 22.4 % (9.6-15.2)
[2021-03-07 04:54] LABS: ALANINE AMINOTRANSFERASE 51 U/L (12-78); ALBUMIN 2.4 g/dL (3.4-5.0); ANION GAP 15 mmol/L (5-15); CALCIUM 8.4 mg/dL (8.5-10.1); CHLORIDE 94 mmol/L (98-107)
[2021-03-07 04:56] LABS: ALKALINE PHOSPHATASE 160 U/L (45-117); BILIRUBIN,TOTAL 0.3 mg/dL (0.2-1.0); TOTAL PROTEIN 6.7 g/dL (6.4-8.2)
[2021-03-07] MEDS: PANTOPRAZOLE 40MG TABLET PO SCH (05:11)
[2021-03-07 05:39] LABS: MD SCAN
[2021-03-07 08:00] VITALS: BP 138/85
[2021-03-07] MEDS: NYSTATIN TOPICAL POWDER 15GM TP SCH ×3 (09:20→20:38)
[2021-03-07] MEDS: SODIUM BICARBONATE 650 MG TABLET PO SCH ×2 (11:45→20:38)
[2021-03-07 13:38] VITALS: BP 146/87
[2021-03-07] MEDS: ACETAMINOPHEN 325 MG TABLET PO PRN (16:38)
[2021-03-07 18:51] VITALS: BP 136/82
[2021-03-07 22:46] VITALS: BP 153/95
[2021-03-08] MEDS: ACETAMINOPHEN 325 MG TABLET PO PRN (00:51)
[2021-03-08] MEDS: HEPARIN 5,000 UNITS/ML, 1ML SQ SCH ×3 (00:51→17:32)
[2021-03-08 01:02] VITALS: BP 138/83
[2021-03-08] MEDS: PANTOPRAZOLE 40MG TABLET PO SCH (04:58)
[2021-03-08 05:54] LABS: BASOPHILS % (AUTO) 0 % (0-1); EOSINOPHILS % (AUTO) 1 % (1-7); LYMPHOCYTES % (AUTO) 9 % (22-44); MEAN CORPUSCULAR HEMOGLOBIN 23.6 pg (27.0-34.8); MEAN CORPUSCULAR HGB CONC 32.1 g/dL (32.4-35.8); MEAN PLATELET VOLUME 8.1 fL (7.4-10.4); MONOCYTES % (AUTO) 7 % (2-9); NEUTROPHILS % (AUTO) 83 % (42-75); PLATELET COUNT 377 x10^3/uL (130-400); RED BLOOD COUNT 4.04 x10^6/uL (3.82-5.3); RED CELL DISTRIBUTION WIDTH 22.2 % (9.6-15.2)
[2021-03-08 05:59] LABS: ANION GAP 18 mmol/L (5-15); CALCIUM 8.8 mg/dL (8.5-10.1); CHLORIDE 94 mmol/L (98-107); CREATININE 6.96 mg/dL (0.55-1.02)
[2021-03-08 06:19] LABS: MD SCAN
[2021-03-08 07:04] VITALS: BP 142/77
[2021-03-08] MEDS: HYDROcodone/APAP 5/325 TABLET PO PRN ×2 (07:55→19:43)
[2021-03-08] MEDS ORDERED: CEFAZOLIN 0 MG in SODIUM CHLORIDE 0.9% 50 ML IV SCH (09:00)
[2021-03-08] MEDS: SODIUM BICARBONATE 650 MG TABLET PO SCH ×2 (09:09→21:05)
[2021-03-08] MEDS: NYSTATIN TOPICAL POWDER 15GM TP SCH ×3 (09:11→21:05)
[2021-03-08] MEDS: ALPRazolam 1MG TAB PO PRN (10:39)
[2021-03-08 12:13] VITALS: BP 147/83
[2021-03-08] MEDS: ONDANSETRON 2MG/ML, 2ML IVPush PRN (15:32)
[2021-03-08] MEDS ORDERED: CEFAZOLIN PMX 2GM/50ML 50 ML IVPB SCH (17:00)
[2021-03-08 19:10] VITALS: BP 137/84
[2021-03-08] MEDS: MELATONIN 5 MG TABLET PO PRN (21:05)
[2021-03-09 01:14] VITALS: BP 122/77
[2021-03-09] MEDS: HEPARIN 5,000 UNITS/ML, 1ML SQ SCH ×3 (01:18→16:34)
[2021-03-09] MEDS: ACETAMINOPHEN 325 MG TABLET PO PRN ×2 (02:54→21:17)
[2021-03-09] MEDS: PANTOPRAZOLE 40MG TABLET PO SCH (03:40)
[2021-03-09 06:05] LABS: BASOPHILS % (AUTO) 1 % (0-1); EOSINOPHILS % (AUTO) 1 % (1-7); LYMPHOCYTES % (AUTO) 9 % (22-44); MEAN CORPUSCULAR HEMOGLOBIN 23.5 pg (27.0-34.8); MEAN CORPUSCULAR HGB CONC 32.2 g/dL (32.4-35.8); MEAN PLATELET VOLUME 7.9 fL (7.4-10.4); MONOCYTES % (AUTO) 8 % (2-9); NEUTROPHILS % (AUTO) 81 % (42-75); PLATELET COUNT 427 x10^3/uL (130-400); RED CELL DISTRIBUTION WIDTH 23.3 % (9.6-15.2)
[2021-03-09 06:14] LABS: ANION GAP 11 mmol/L (5-15); CALCIUM 9.4 mg/dL (8.5-10.1); CHLORIDE 97 mmol/L (98-107)
[2021-03-09 06:15] LABS: CREATININE 5.27 mg/dL (0.55-1.02)
[2021-03-09 06:34] VITALS: BP 119/77
[2021-03-09 06:37] LABS: MD SCAN
[2021-03-09] MEDS: SODIUM BICARBONATE 650 MG TABLET PO SCH ×2 (08:57→21:16)
[2021-03-09] MEDS: HYDROcodone/APAP 5/325 TABLET PO PRN ×2 (09:38→17:53)
[2021-03-09] MEDS: ALPRazolam 1MG TAB PO PRN (09:38)
[2021-03-09] MEDS: NYSTATIN TOPICAL POWDER 15GM TP SCH ×3 (11:00→21:00)
[2021-03-09 12:20] VITALS: BP 122/67
[2021-03-09] MEDS ORDERED: FENTANYL PF 100 MCG/2ML ONE ×2 (12:35)
[2021-03-09] MEDS ORDERED: FLUMAZENIL 0.1 MG/1 ML, 5ML ONE (12:36)
[2021-03-09] MEDS ORDERED: MIDAZOLAM 1 MG/ML, 5ML ONE (12:36)
[2021-03-09] MEDS ORDERED: NALOXONE 1 MG/ML, 2ML ONE (12:36)
[2021-03-09] MEDS ORDERED: LIDOCAINE 1%, 10ML ONE (12:38)
[2021-03-09] MEDS ORDERED: LIDOCAINE 1%, 20ML ONE (12:38)
[2021-03-09 14:24] VITALS: BP 138/82
[2021-03-09 20:23] VITALS: BP 130/84
[2021-03-09] MEDS: MELATONIN 5 MG TABLET PO PRN (21:17)
[2021-03-10 01:19] VITALS: BP 132/84
[2021-03-10] MEDS: HEPARIN 5,000 UNITS/ML, 1ML SQ SCH ×3 (01:21→17:36)
[2021-03-10] MEDS: HYDROcodone/APAP 5/325 TABLET PO PRN ×3 (01:22→20:43)
[2021-03-10] MEDS: ACETAMINOPHEN 325 MG TABLET PO PRN ×2 (05:10→12:35)
[2021-03-10] MEDS: PANTOPRAZOLE 40MG TABLET PO SCH (05:10)
[2021-03-10] MEDS: NYSTATIN TOPICAL POWDER 15GM TP SCH ×3 (09:00→20:44)
[2021-03-10] MEDS: SODIUM BICARBONATE 650 MG TABLET PO SCH ×2 (09:00→20:42)
[2021-03-10 09:12] VITALS: BP 100/65
--- NOTE | 2021-03-10 12:46 | NUR ---
Activity sheet posted and patient/RN informed. Addendum: 03/10/21 at 1247 by Jae Plummer PT Amended: Links added.
[2021-03-10 14:50] VITALS: BP 125/84
[2021-03-10] MEDS ORDERED: CEFAZOLIN PMX 2GM/50ML 50 ML IVPB SCH (17:00)
[2021-03-10] MEDS ORDERED: BUTALB/APAP/CAFFEINE 50MG/325MG/40MG ONE (17:57)
[2021-03-10] MEDS ORDERED: BUTALB/APAP/CAFFEINE 50MG/325MG/40MG PO ONE (18:00)
[2021-03-10 18:28] VITALS: BP 129/88
[2021-03-10] MEDS: MELATONIN 5 MG TABLET PO PRN (21:55)
[2021-03-11 00:33] VITALS: BP 121/82
[2021-03-11] MEDS: HEPARIN 5,000 UNITS/ML, 1ML SQ SCH ×3 (01:12→17:44)
[2021-03-11] MEDS: HYDROcodone/APAP 5/325 TABLET PO PRN ×2 (04:40→17:51)
[2021-03-11 05:45] LABS: MEAN CORPUSCULAR HEMOGLOBIN 24.3 pg (27.0-34.8); MEAN CORPUSCULAR HGB CONC 32.2 g/dL (32.4-35.8); MEAN PLATELET VOLUME 7.4 fL (7.4-10.4); PLATELET COUNT 338 x10^3/uL (130-400); RED BLOOD COUNT 3.84 x10^6/uL (3.82-5.3); RED CELL DISTRIBUTION WIDTH 24.7 % (9.6-15.2)
[2021-03-11] MEDS: PANTOPRAZOLE 40MG TABLET PO SCH (05:45)
[2021-03-11 06:11] LABS: CHLORIDE 94 mmol/L (98-107)
[2021-03-11 06:19] LABS: MD YES
[2021-03-11 06:21] LABS: BASOS% (MANUAL) 1 % (0-1); EOS#(MANUAL) 0.31 x10^3/uL (0.0-0.4); EOS% (MANUAL) 3 % (1-7); LYMPH#(MANUAL) 1.04 x10^3/uL (1-3.4); LYMPHS% (MANUAL) 10 % (22-44); MONOS#(MANUAL) 0.62 x10^3/uL (0.3-2.7); MONOS% (MANUAL) 6 % (2-9); SEG#(MANUAL) 8.32 x10^3/uL (1.8-6.8); SEGS% (MANUAL) 80 % (42-75)
[2021-03-11 06:22] LABS: ANISOCYTOSIS 1+; HYPOCHROMIA 1+; MICROCYTOSIS 1+; POLYCHROMASIA 1+
[2021-03-11 06:23] LABS: <PLATELET ESTIMATE> ADEQUATE; <PLT MORPHOLOGY> NORMAL PLT MORPH
[2021-03-11 06:24] LABS: ALBUMIN 2.3 g/dL (3.4-5.0); ANION GAP 12 mmol/L (5-15); CALCIUM 8.4 mg/dL (8.5-10.1); CREATININE 3.12 mg/dL (0.55-1.02)
[2021-03-11 06:42] VITALS: BP 131/84
[2021-03-11] MEDS: NYSTATIN TOPICAL POWDER 15GM TP SCH ×3 (08:12→20:38)
[2021-03-11] MEDS: SODIUM BICARBONATE 650 MG TABLET PO SCH ×2 (08:12→20:36)
[2021-03-11] MEDS: ACETAMINOPHEN 325 MG TABLET PO PRN ×2 (08:20→20:37)
[2021-03-11] MEDS: ONDANSETRON 2MG/ML, 2ML IVPush PRN ×2 (10:27→21:15)
[2021-03-11] MEDS: ALPRazolam 1MG TAB PO PRN (10:53)
[2021-03-11] MEDS ORDERED: DIPHENHYDRAMINE 25 MG CAPSULE PO ONE (11:00)
[2021-03-11 14:21] VITALS: BP 125/66
[2021-03-11 19:07] VITALS: BP 113/76
[2021-03-11] MEDS: MELATONIN 5 MG TABLET PO PRN (20:38)
[2021-03-12 01:20] VITALS: BP 125/84
[2021-03-12] MEDS: HYDROcodone/APAP 5/325 TABLET PO PRN ×3 (01:30→18:27)
[2021-03-12] MEDS: HEPARIN 5,000 UNITS/ML, 1ML SQ SCH ×3 (01:31→16:40)
[2021-03-12] MEDS: PANTOPRAZOLE 40MG TABLET PO SCH (05:12)
[2021-03-12 05:56] LABS: ANION GAP 5 mmol/L (5-15); CALCIUM 8.6 mg/dL (8.5-10.1); CHLORIDE 97 mmol/L (98-107)
[2021-03-12 07:03] VITALS: BP 130/85
[2021-03-12] MEDS: ONDANSETRON 2MG/ML, 2ML IVPush PRN (08:51)
[2021-03-12] MEDS: SODIUM BICARBONATE 650 MG TABLET PO SCH ×2 (08:51→20:03)
[2021-03-12] MEDS: NYSTATIN TOPICAL POWDER 15GM TP SCH ×3 (09:00→20:04)
[2021-03-12 12:10] VITALS: BP 122/75
[2021-03-12 19:21] VITALS: BP 119/79
[2021-03-12] MEDS: MELATONIN 5 MG TABLET PO PRN (20:03)
[2021-03-12] MEDS: ACETAMINOPHEN 325 MG TABLET PO PRN (20:03)
[2021-03-13] MEDS: HEPARIN 5,000 UNITS/ML, 1ML SQ SCH ×3 (00:05→16:38)
[2021-03-13 01:39] VITALS: BP 89/42
[2021-03-13 03:33] VITALS: BP 105/68
[2021-03-13] MEDS: HYDROcodone/APAP 5/325 TABLET PO PRN ×3 (03:37→20:56)
[2021-03-13] MEDS: PANTOPRAZOLE 40MG TABLET PO SCH (05:12)
[2021-03-13 05:28] LABS: ALBUMIN 2.3 g/dL (3.4-5.0); ANION GAP 7 mmol/L (5-15); CALCIUM 8.3 mg/dL (8.5-10.1); CHLORIDE 98 mmol/L (98-107); CREATININE 1.94 mg/dL (0.55-1.02)
[2021-03-13 07:45] VITALS: BP 113/74
[2021-03-13] MEDS: SODIUM BICARBONATE 650 MG TABLET PO SCH ×2 (08:21→20:55)
[2021-03-13] MEDS: ONDANSETRON 2MG/ML, 2ML IVPush PRN ×2 (08:21→17:24)
[2021-03-13] MEDS: NYSTATIN TOPICAL POWDER 15GM TP SCH ×3 (08:21→21:01)
[2021-03-13] MEDS ORDERED: POTASSIUM CHLORIDE 20 MEQ TAB.ER.PRT PO ONE (10:30)
[2021-03-13 12:25] VITALS: BP 138/87
[2021-03-13 19:13] VITALS: BP 122/88
[2021-03-13] MEDS: MELATONIN 5 MG TABLET PO PRN (20:56)
[2021-03-14 01:15] VITALS: BP 121/76
[2021-03-14] MEDS: PANTOPRAZOLE 40MG TABLET PO SCH (05:19)
[2021-03-14] MEDS: HYDROcodone/APAP 5/325 TABLET PO PRN ×3 (05:19→21:04)
[2021-03-14 07:18] LABS: BASOPHILS % (AUTO) 1 % (0-1); EOSINOPHILS % (AUTO) 2 % (1-7); LYMPHOCYTES % (AUTO) 17 % (22-44); MEAN CORPUSCULAR HEMOGLOBIN 24.3 pg (27.0-34.8); MEAN CORPUSCULAR HGB CONC 32.1 g/dL (32.4-35.8); MEAN PLATELET VOLUME 6.9 fL (7.4-10.4); MONOCYTES % (AUTO) 12 % (2-9); NEUTROPHILS % (AUTO) 67 % (42-75); PLATELET COUNT 342 x10^3/uL (130-400); RED BLOOD COUNT 3.55 x10^6/uL (3.82-5.3)
[2021-03-14 07:29] LABS: CHLORIDE 102 mmol/L (98-107)
[2021-03-14 07:30] LABS: ALBUMIN 2.3 g/dL (3.4-5.0); ANION GAP 6 mmol/L (5-15); CALCIUM 8.6 mg/dL (8.5-10.1)
[2021-03-14 07:34] LABS: MD SCAN
[2021-03-14 07:36] LABS: ALANINE AMINOTRANSFERASE 13 U/L (12-78); ALKALINE PHOSPHATASE 89 U/L (45-117); BILIRUBIN,TOTAL 0.2 mg/dL (0.2-1.0); CREATININE 1.52 mg/dL (0.55-1.02); TOTAL PROTEIN 6.3 g/dL (6.4-8.2)
[2021-03-14 08:23] VITALS: BP 134/80
[2021-03-14] MEDS: HEPARIN 5,000 UNITS/ML, 1ML SQ SCH ×3 (08:48→16:35)
[2021-03-14] MEDS: SODIUM BICARBONATE 650 MG TABLET PO SCH ×2 (08:48→20:54)
[2021-03-14] MEDS: ALPRazolam 1MG TAB PO PRN (08:51)
[2021-03-14] MEDS: NYSTATIN TOPICAL POWDER 15GM TP SCH ×3 (08:54→20:54)
[2021-03-14 12:33] VITALS: BP 114/73
[2021-03-14] MEDS: ACETAMINOPHEN 325 MG TABLET PO PRN ×2 (16:39)
[2021-03-14] MEDS: ONDANSETRON 2MG/ML, 2ML IVPush PRN (17:38)
[2021-03-14 21:06] VITALS: BP 108/72
[2021-03-15] MEDS: HEPARIN 5,000 UNITS/ML, 1ML SQ SCH ×2 (02:15→07:33)
[2021-03-15 02:18] VITALS: BP 119/75
[2021-03-15] MEDS: ACETAMINOPHEN 325 MG TABLET PO PRN ×2 (02:23→08:36)
[2021-03-15] MEDS: PANTOPRAZOLE 40MG TABLET PO SCH (05:30)
[2021-03-15] MEDS: HYDROcodone/APAP 5/325 TABLET PO PRN ×2 (05:31→14:57)
[2021-03-15 05:44] LABS: MEAN CORPUSCULAR HEMOGLOBIN 24.6 pg (27.0-34.8); MEAN CORPUSCULAR HGB CONC 32.3 g/dL (32.4-35.8); MEAN PLATELET VOLUME 7.1 fL (7.4-10.4); PLATELET COUNT 322 x10^3/uL (130-400); RED BLOOD COUNT 3.64 x10^6/uL (3.82-5.3); RED CELL DISTRIBUTION WIDTH 23.8 % (9.6-15.2)
[2021-03-15 05:54] LABS: CHLORIDE 106 mmol/L (98-107)
[2021-03-15 05:57] LABS: ALANINE AMINOTRANSFERASE 20 U/L (12-78); ALBUMIN 2.3 g/dL (3.4-5.0); ALKALINE PHOSPHATASE 94 U/L (45-117); ANION GAP 9 mmol/L (5-15); BILIRUBIN,TOTAL 0.2 mg/dL (0.2-1.0); CALCIUM 8.4 mg/dL (8.5-10.1); CREATININE 1.07 mg/dL (0.55-1.02); TOTAL PROTEIN 6.1 g/dL (6.4-8.2)
[2021-03-15 06:11] LABS: MD YES
[2021-03-15 06:13] LABS: <PLATELET ESTIMATE> ADEQUATE; <PLT MORPHOLOGY> NORMAL PLT MORPH; ANISOCYTOSIS 1+; BAND#(MANUAL) 0.14 x10^3/uL; BANDS%(MANUAL) 2 % (0-7); EOS#(MANUAL) 0.07 x10^3/uL (0.0-0.4); EOS% (MANUAL) 1 % (1-7); HYPOCHROMIA 1+; LYMPH#(MANUAL) 1.66 x10^3/uL (1-3.4); LYMPHS% (MANUAL) 24 % (22-44); MICROCYTOSIS 1+; MONOS#(MANUAL) 0.14 x10^3/uL (0.3-2.7); MONOS% (MANUAL) 2 % (2-9); POLYCHROMASIA 1+; SEGS% (MANUAL) 71 % (42-75)
[2021-03-15] MEDS: SODIUM BICARBONATE 650 MG TABLET PO SCH (08:34)
[2021-03-15 08:47] VITALS: BP 97/64
[2021-03-15] MEDS: NYSTATIN TOPICAL POWDER 15GM TP SCH ×2 (09:00→14:57)
[2021-03-15] MEDS ORDERED: LIDOCAINE 1%, 10ML ONE (09:47)
[2021-03-15] MEDS ORDERED: FLUMAZENIL 0.1 MG/1 ML, 5ML ONE (10:01)
[2021-03-15] MEDS ORDERED: FENTANYL PF 100 MCG/2ML ONE (10:01)
[2021-03-15] MEDS ORDERED: MIDAZOLAM 1 MG/ML, 5ML ONE (10:01)
[2021-03-15] MEDS ORDERED: NALOXONE 1 MG/ML, 2ML ONE (10:01)
[2021-03-15 12:08] VITALS: BP 107/69
== END 2021-03-15 15:59 | disposition home or self-care (01) | DRG 720 ==
LOC: ED 19:04 → EDIP 19:18 → CCU 20:37 → 4NW 03-01 18:19 → 4NE 03-05 07:40 → 4WST 03-07 22:24
PROVIDERS: ADMIT Family Medicine; ATTEND Internal Medicine
PROC: 009U3ZX Drainage of Spinal Canal, Percutaneous Approach, Diagnostic (ICD-10-PCS; 2021-02-24)
PROC: 02HV33Z Insertion of Infusion Device into Superior Vena Cava, Percutaneous Approach (ICD-10-PCS; 2021-02-24)
PROC: 0BH17EZ Insertion of Endotracheal Airway into Trachea, Via Natural or Artificial Opening (ICD-10-PCS; 2021-02-24)
PROC: 0T9B30Z Drainage of Bladder with Drainage Device, Percutaneous Approach (ICD-10-PCS; 2021-02-24)
PROC: 5A09357 Assistance with Respiratory Ventilation, Less than 24 Consecutive Hours, Continuous Positive Airway Pressure (ICD-10-PCS; 2021-02-24)
PROC: 5A1945Z Respiratory Ventilation, 24-96 Consecutive Hours (ICD-10-PCS; principal; 2021-02-26)
PROC: 5A1D70Z Performance of Urinary Filtration, Intermittent, Less than 6 Hours Per Day (ICD-10-PCS; 2021-02-27)
PROC: 02HV33Z Insertion of Infusion Device into Superior Vena Cava, Percutaneous Approach (ICD-10-PCS; 2021-02-27)
PROC: B548ZZA Ultrasonography of Superior Vena Cava, Guidance (ICD-10-PCS; 2021-02-27)
PROC: 5A1D70Z Performance of Urinary Filtration, Intermittent, Less than 6 Hours Per Day (ICD-10-PCS; 2021-02-28)
PROC: 5A1D70Z Performance of Urinary Filtration, Intermittent, Less than 6 Hours Per Day (ICD-10-PCS; 2021-03-01)
PROC: 5A1D70Z Performance of Urinary Filtration, Intermittent, Less than 6 Hours Per Day (ICD-10-PCS; 2021-03-01)
PROC: 5A1D70Z Performance of Urinary Filtration, Intermittent, Less than 6 Hours Per Day (ICD-10-PCS; 2021-03-02)
PROC: 5A1D70Z Performance of Urinary Filtration, Intermittent, Less than 6 Hours Per Day (ICD-10-PCS; 2021-03-05)
PROC: 5A1D70Z Performance of Urinary Filtration, Intermittent, Less than 6 Hours Per Day (ICD-10-PCS; 2021-03-06)
PROC: 5A1D70Z Performance of Urinary Filtration, Intermittent, Less than 6 Hours Per Day (ICD-10-PCS; 2021-03-07)
PROC: 5A1D70Z Performance of Urinary Filtration, Intermittent, Less than 6 Hours Per Day (ICD-10-PCS; 2021-03-08)
PROC: 5A1D70Z Performance of Urinary Filtration, Intermittent, Less than 6 Hours Per Day (ICD-10-PCS; 2021-03-09)
PROC: 0JH63XZ Insertion of Tunneled Vascular Access Device into Chest Subcutaneous Tissue and Fascia, Percutaneous Approach (ICD-10-PCS; 2021-03-09)
PROC: 5A1D70Z Performance of Urinary Filtration, Intermittent, Less than 6 Hours Per Day (ICD-10-PCS; 2021-03-10)
PROC: 5A1D70Z Performance of Urinary Filtration, Intermittent, Less than 6 Hours Per Day (ICD-10-PCS; 2021-03-13)
PROC: 5A1D70Z Performance of Urinary Filtration, Intermittent, Less than 6 Hours Per Day (ICD-10-PCS; 2021-03-14)
DX: A41.9 Sepsis, unspecified organism (principal); K72.00 Acute and subacute hepatic failure without coma; N17.0 Acute kidney failure with tubular necrosis; R65.21 Severe sepsis with septic shock; J15.9 Unspecified bacterial pneumonia; J96.00 Acute respiratory failure, unspecified whether with hypoxia or hypercapnia; J96.01 Acute respiratory failure with hypoxia; G92 Toxic encephalopathy; E44.0 Moderate protein-calorie malnutrition; E87.0 Hyperosmolality and hypernatremia; E87.1 Hypo-osmolality and hyponatremia; E87.4 Mixed disorder of acid-base balance; J98.11 Atelectasis; M62.82 Rhabdomyolysis; N39.0 Urinary tract infection, site not specified; Z16.11 Resistance to penicillins; Z99.11 Dependence on respirator [ventilator] status; B96.20 Unspecified Escherichia coli [E. coli] as the cause of diseases classified elsewhere; B96.89 Other specified bacterial agents as the cause of diseases classified elsewhere; D50.9 Iron deficiency anemia, unspecified; D69.6 Thrombocytopenia, unspecified; E11.649 Type 2 diabetes mellitus with hypoglycemia without coma; E11.65 Type 2 diabetes mellitus with hyperglycemia; E83.51 Hypocalcemia; E87.6 Hypokalemia; E87.70 Fluid overload, unspecified; F15.10 Other stimulant abuse, uncomplicated; F41.1 Generalized anxiety disorder; G89.29 Other chronic pain; I10 Essential (primary) hypertension; K43.9 Ventral hernia without obstruction or gangrene; F32.9 Major depressive disorder, single episode, unspecified; G47.00 Insomnia, unspecified; K21.9 Gastro-esophageal reflux disease without esophagitis; Z90.49 Acquired absence of other specified parts of digestive tract; Z98.84 Bariatric surgery status; Z99.2 Dependence on renal dialysis; Z79.899 Other long term (current) drug therapy; Z79.891 Long term (current) use of opiate analgesic; Z79.01 Long term (current) use of anticoagulants
CPT/HCPCS: 36415; 36600; 74018; 77001; 84145; 89051; 99285; J3490; 36556; 36558; 36565; 36589; 70450; 70551; 71045; 71250; 74176; 76700; 76937; 80048; 80053; 80069; 80074; 80202; 80299; 80307; 80320; 80329; 81001; 82140; 82330; 82436; 82550; 82570; 82803; 82945; 82962; 83036; 83605; 83735; 83874; 83880; 83930; 83935; 83970; 84100; 84133; 84157; 84300; 84439; 84443; 84478; 85025; 85610; 85651; 85730; 86140; 86480; 86706; 87040; 87070; 87077; 87081; 87086; 87186; 87205; 87252; 87324; 87529; 90935; 93005; 93306; 94002; 94003; 94150; 95819; 99156; 99157; C1894; G0378; J0133; J0610; J0690; J0696; J1644; J1940; J2250; J2405; J2543; J2704; J3010; J3370; J3411; J3480; J7070; C1750; C1751; C9113; G0480; J1642; J2310; J3475; J7030; J7040; J7050; Q0163